=== PATIENT | female | born 1975 | race Caucasian/White ===

== ENCOUNTER 2021-08-02 19:40 | Emergency (ER) | payer SELFPAY ==
[2021-08-02] VITALS (10 sets, daily range): BP systolic 110–148; BP diastolic 63–92; PULSE 73–90; RESP 16–25; TEMP 36.6; O2SAT 92–98
--- NOTE | ~2021-08-02 | XR_ITS ---
EXAMINATION: XR chest 1V portable DATE: 08/02/2021 21:16 INDICATION: Shortness of breath, cough and cold symptoms. TECHNIQUE: frontal view of the chest was obtained. COMPARISON: 01/21/2017 FINDINGS: The lungs remain clear with no focal airspace opacities, pulmonary edema, pleural effusion or pneumot horax. The cardiomediastinal silhouette is normal. Visualized bones and soft tissues are unremarkable . IMPRESSION: 1. No acute cardiopulmonary disease. Reviewed, dictated and finalized at location H. C DEVELOPER
--- NOTE | 2021-08-02 20:57 | ED.URI ---
HPI - URI/Sore Throat General Chief Complaint: Upper Respiratory Infection Stated Complaint: cough congestion Time Seen by Provider: 08/02/21 20:51 Source: patient Mode of arrival: ambulatory Limitations: no limitations History of Present Illness HPI Narrative: Patient is a 46-year-old female complaining of cough, productive, yellowish sputum, nasal congestion, sore throat, headache and fever that started yesterday, I think I have bronchitis which she states presented the same way when she was diagnosed last time. Patient states that she was coughing so hard earlier today she vomited dark stuff , single episode. Patient denies coughing up blood. Patient states that she has had positive sick contact. Patient denies any chest pain, shortness of breath, abdominal pain, nausea, vomiting, diarrhea or rash Related Data Allergies Allergy/AdvReac Type Severity Reaction Status Date / Time erythromycin base Allergy Unknown Unknown Verified 08/02/21 19:57 Review of Systems Review of Systems: All systems reviewed & are unremarkable except as noted in HPI and below Constitutional: Constitutional: Denies body ache(s), Denies excessive sweating, Denies fatigue, Denies headache(s), Denies lethargy, Denies malaise, Denies weakness and Denies weight loss Eyes: Eyes: Denies blurry vision, Denies change in vision and Denies loss of vision ENT: Denies dizziness, Denies ear discharge, Denies headache(s), Denies lip swelling, Denies epistaxis, Denies neck pain, Denies throat swelling and Denies tongue swelling Cardiovascular: Cardiovascular: Denies chest pain, Denies chest pain at rest, Denies chest pain with activity, Denies diaphoresis, Denies rapid heart rate, Denies edema, Denies irregular heart rhythm, Denies lightheadedness, Denies palpitations, Denies dyspnea and Denies dyspnea on exertion Respiratory: Respiratory: Denies hemoptysis, Denies dyspnea and Denies dyspnea on exertion Gastrointestinal: Gastrointestinal: Denies abdominal pain, Denies melena, Denies hematochezia, Denies diarrhea, Denies nausea, Denies vomiting and Denies hematemesis Musculoskeletal: Musculoskeletal: Denies abnormal gait, Denies deformity, Denies joint swelling, Denies limited range of motion, Denies neck pain and Denies numbness Neurologic: Denies Abnormal speech present, Denies abnormal gait, Denies confusion, Denies dizziness, Denies headache(s), Denies focal weakness, Denies loss of vision, Denies numbness, Denies Other visual disturbances, Denies Sensory deficit (Neuro) and Denies weakness Psychiatric: Psychiatric: Denies confusion, Denies depression, Denies auditory hallucinations, Denies homicidal ideation and Denies suicidal ideation Endocrine: Endocrine: Denies cold intolerance, Denies excessive sweating, Denies fatigue, Denies heat intolerance and Denies palpitations Hematologic/Lymphatic: Hematologic/Lymphatic: Denies easy bleeding and Denies easy bruising Allergic/Immunologic: Allergic/Immunologic: Denies lip swelling, Denies throat swelling and Denies tongue swelling PMFSH Social History Social History Smoking end date: 08/09/12 Alcohol intake: current Gender identity (if verbalized by the patient): Female Comments Past medical history: Bronchitis Family history: Hypertension, Social history: Non-smoker, occasional EtOH use, no drug use Exam Const: General: cooperative, healthy appearing, comfortable, no acute distress, well developed, alert and awake; No confusion Orientation/consciousness: oriented to person, oriented to place, oriented to time, patient oriented x3 and No confusion Limitations: no limitations HENMT: Head: normal to inspection, normocephalic and atraumatic Ears: hearing grossly normal bilaterally, TM normal on the right and TM normal on the left General nose exam: Normal external nose present, Normal nares present and No nasal discharge present Face and sinus: normal facial
[2021-08-03 17:04] LABS: SARS-CoV-2 RNA PCR Positive
== END 2021-08-02 23:12 | disposition home or self-care (01) ==
PROVIDERS: Emergency Provider Emergency Medicine; PCP Physician Assistant
DX: U07.1 COVID-19 (principal); J20.9 Acute bronchitis, unspecified; Z87.891 Personal history of nicotine dependence
CPT/HCPCS: 71045; 87804; 99283; C9803; U0003; U0005

== ENCOUNTER 2022-08-20 16:31 | Outpatient (CLI) | payer OTHER, SELFPAY ==
--- NOTE | ~2022-08-20 | XR_ITS ---
XR chest 2V DATE: 08/20/2022 16:55 INDICATION: Acute cough. Covid-positive for 2 to 3 days TECHNIQUE: PA and lateral views COMPARISON: 08/02/2021 portable AP chest FINDINGS: Normal heart size. No hilar or mediastinal enlargement. No pulmonary infiltrate or consolid ation, pleural effusion or pulmonary vascular congestion or pneumothorax. Status post cholecystectomy. IMPRESSION: No active cardiopulmonary disease Reviewed, dictated and finalized at location A. MACY OPERATIONS COORDINATOR
== END 2022-08-20 16:32 | disposition home or self-care (01) ==
PROVIDERS: PCP Physician Assistant; Visit Provider Physician Assistant
DX: U07.1 COVID-19 (principal); R07.89 Other chest pain; R05.1 Acute cough
CPT/HCPCS: 71046

== ENCOUNTER 2022-12-02 19:58 | Emergency (ER) | payer OTHER, SELFPAY ==
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
[2022-12-02 20:05] VITALS: BP 144/84; PULSE 98; RESP 15; TEMP 36.1; O2SAT 99
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
[2022-12-02] MEDS: KETOROLAC (*BKC) 60 MG/2 ML VIAL IM (23:25)
[2022-12-02 23:41] VITALS: BP 162/84; PULSE 72; RESP 15; O2SAT 98
== END 2022-12-02 23:34 | disposition home or self-care (01) ==
PROVIDERS: Emergency Provider Physician Assistant; PCP Physician Assistant
DX: S16.1XXA Strain of muscle, fascia and tendon at neck level, initial encounter (principal); S20.211A Contusion of right front wall of thorax, initial encounter; K21.9 Gastro-esophageal reflux disease without esophagitis; V49.40XA Driver injured in collision with unspecified motor vehicles in traffic accident, initial encounter
CPT/HCPCS: 71046; 71100; 72125; 96372; 99284; J1885

== ENCOUNTER 2023-02-02 09:50 | Outpatient (CLI) | payer OTHER, SELFPAY ==
--- NOTE | ~2023-02-02 | XR_ITS ---
Right Shoulder Technique: AP and scapular Y views were obtained. Clinical History: Pain Findings: No fracture or dislocation is seen. Osseous alignment is anatomic. The glenohumeral and acr omioclavicular joint spaces are preserved. Soft tissues are unremarkable. Impression: Unremarkable right shoulder radiographs. Reviewed, dictated and finalized at [facility]. Impression: Unremarkable right shoulder radiographs.
--- NOTE | ~2023-02-02 | XR_ITS ---
Left Knee Technique: AP and lateral views were obtained. Clinical History: Pain Findings: No fracture or dislocation is seen. Osseous alignment is anatomic. Mild tricompartmental de generative changes present. Soft tissues are unremarkable. No joint effusion is seen. Impression: Mild tricompartmental degenerative change. Reviewed, dictated and finalized at location . Impression: Mild tricompartmental degenerative change.
--- NOTE | ~2023-02-02 | XR_ITS ---
Right Knee Technique: AP and lateral views were obtained. Clinical History: Pain Findings: No fracture or dislocation is seen. Osseous alignment is anatomic. Mild tricompartmental de generative spurring is present. Soft tissues are unremarkable. No joint effusion is seen. Impression: Mild tricompartmental degenerative change. Reviewed, dictated and finalized at [facility]. Impression: Mild tricompartmental degenerative change.
== END 2023-02-02 09:51 | disposition home or self-care (01) ==
LOC: ANHIMG 09:59
PROVIDERS: PCP Physician Assistant; Visit Provider Physician Assistant
DX: M17.0 Bilateral primary osteoarthritis of knee (principal)
CPT/HCPCS: 73030; 73562

== ENCOUNTER 2023-04-20 01:18 | Emergency (ER) | payer OTHER, SELFPAY ==
[2023-04-20 01:20] VITALS: BP 144/92; PULSE 86; RESP 15; TEMP 36.6; O2SAT 100
[2023-04-20 02:16] LABS: Influenza A QL RT-PCR Negative (Negative); Influenza B QL RT-PCR Negative (Negative); RSV RNA, RT-PCR Negative (Negative); SARS-CoV-2 RNA PCR Negative (Negative)
[2023-04-20 03:02] LABS: Strep Group A RT-PCR NOT DETECTED (Negative)
[2023-04-20 04:33] VITALS: BP 145/82; PULSE 74; RESP 18; O2SAT 99
[2023-04-20 06:09] VITALS: BP 133/80; PULSE 78; RESP 16; O2SAT 99
--- NOTE | 2023-04-20 08:19 | ED.GENADULT ---
HPI - General Adult General Chief complaint: Upper Respiratory Infection Stated complaint: sore throat Time Seen by Provider: 04/20/23 06:55 History of Present Illness HPI narrative: 47-year-old female presenting to the emergency department for evaluation of sore throat. Patient states that she had recent travel to [place] when she came back she started having sore throat. Patient does have prior history of vocal cord surgery. Patient denies any recent change in her voice but does report pain with swallowing today. Related Data Home Medications Medication Instructions Recorded Confirmed Nexium 12/02/22 Allergies Allergy/AdvReac Type Severity Reaction Status Date / Time erythromycin base Allergy Unknown Unknown Verified 04/20/23 01:22 iohexol Allergy Itching Verified 04/20/23 01:22 [From contrast - CT, X-RAY] Review of Systems Review of Systems: All systems reviewed & are unremarkable except as noted in HPI and below PMFSH Past Medical History Medical History GERD (gastroesophageal reflux disease) Surgical History Surgical History No pertinent past surgical history Social History Social History Smoking end date: 08/09/12 Alcohol intake: current Gender identity (if verbalized by the patient): Female Exam Narrative: APPEARANCE: Well appearing, no pain, no distress, well-nourished. HEAD: normocephalic, atraumatic. EYES: PERRLA/EOMI, conjunctivae clear. NOSE: Normal no drainage EARS:TMS clear with good light reflex. THROAT: Pharynx clear, no exudate. NECK: Supple. No adenopathy, no masses. RESPIRATORY: Airway patent, respirations nonlabored. Clear to auscultation bilaterally, no rales, rhonchi, wheezing. CARDIOVASCULAR: Regular rate and rhythm without murmurs rubs or gallops. ABDOMINAL: Soft, nontender, nondistended, normal bowel sounds MUSCULOSKELETAL: Moves all extremities. Strength/ROM intact, No edema, No calf tenderness. NEURO: Alert. Cranial nerves II through XII intact. SKIN: Warm, dry. Normal Color Course Course Emergency Course: 47-year-old female presented ED for evaluation of sore throat. Patient was strep negative but patient was treated with antibiotics for pharyngitis. Patient was updated on the results of her work-up. All question concerns were addressed and patient was comfortable with plan for discharge and close follow-up. Vital Signs Vital signs: Vital Signs Temperature 97.8 F 04/20/23 01:20 Pulse Rate 86 04/20/23 01:20 Respiratory Rate 15 04/20/23 01:20 Blood Pressure 144/92 H 04/20/23 01:20 Pulse Oximetry 100 04/20/23 01:20 Oxygen Delivery Room Air 04/20/23 01:20 Temperature 97.8 F 04/20/23 01:20 Pulse Rate 78 04/20/23 06:09 Respiratory Rate 16 04/20/23 06:09 Blood Pressure 133/80 04/20/23 06:09 Pulse Oximetry 99 04/20/23 06:09 Oxygen Delivery Room Air 04/20/23 01:20 Medical Decision Making Differential Diagnosis Differential Diagnosis: Tonsillitis, pharyngitis Vital Signs Vital Signs: Vital Signs Temperature 97.8 F 04/20/23 01:20 Pulse Rate 86 04/20/23 01:20 Respiratory Rate 15 04/20/23 01:20 Blood Pressure 144/92 H 04/20/23 01:20 Pulse Oximetry 100 04/20/23 01:20 Oxygen Delivery Room Air 04/20/23 01:20 Temperature 97.8 F 04/20/23 01:20 Pulse Rate 78 04/20/23 06:09 Respiratory Rate 16 04/20/23 06:09 Blood Pressure 133/80 04/20/23 06:09 Pulse Oximetry 99 04/20/23 06:09 Oxygen Delivery Room Air 04/20/23 01:20 Lab Data Lab results reviewed: Yes I reviewed the patient's lab results. Labs: Lab Results 04/20/23 Range/Units 01:26 Influenza A (RT-PCR) Negative (Negative) Influenza B (RT-PCR) Negative (Negative) RSV (RT-PCR) Negative (Negative) SARS-CoV-
[2023-04-20] MEDS: AMOXICILLIN/CLAVULANATE K SUSP 400-57 MG/5 ML 5 ML UD 875 MG PO (08:50)
== END 2023-04-20 09:00 | disposition home or self-care (01) ==
PROVIDERS: Emergency Medicine; Emergency Provider Emergency Medicine; PCP Physician Assistant
DX: J02.9 Acute pharyngitis, unspecified (principal); K21.9 Gastro-esophageal reflux disease without esophagitis; Z87.891 Personal history of nicotine dependence; Z20.822 Contact with and (suspected) exposure to COVID-19
CPT/HCPCS: 87637; 87651; 96372; 99283; A9270; J1100

== ENCOUNTER 2023-07-25 10:05 | Emergency (ER) | payer OTHER, SELFPAY ==
[2023-07-25 10:15] VITALS: BP 122/77; PULSE 68; RESP 16; TEMP 36.8; O2SAT 99
--- NOTE | 2023-07-25 10:58 | ED.URI ---
HPI - URI/Sore Throat General Chief Complaint: Upper Respiratory Infection Stated Complaint: sore throat,vaginal bleeding Time Seen by Provider: 07/25/23 10:58 Source: patient and RN notes reviewed Mode of arrival: ambulatory Limitations: no limitations History of Present Illness HPI Narrative: 48-year-old female presents concern for sore throat. Reports her grandson had strep throat last week. Reports she has been having sore throat, painful swallowing, some might nasal drainage, headache that started last night. She also reports she started having some vaginal bleeding consistent with a heavy period, she is concerned because she has not had a period in 12 months and thought she was possibly menopausal. She reports her doctor recently essence some blood work for her hormones which she does not know the results. She denies nausea, vomiting, diarrhea, abdominal pain. Reports abdominal cramping. MD elicited complaint: sore throat Related Data Allergies Allergy/AdvReac Type Severity Reaction Status Date / Time erythromycin base Allergy Unknown Unknown Verified 07/25/23 10:29 iohexol Allergy Itching Verified 07/25/23 10:29 [From contrast - CT, X-RAY] Review of Systems Review of Systems: CONSTITUTIONAL: Reports malaise. Denies chills, sweats, or fever. EYES: Denies visual changes, redness, or discharge. ENT: Reports rhinorrhea, sore throat. Denies congestion, sinus pain, otalgia CARDIOVASCULAR: Denies chest pain, palpitations, or edema. RESPIRATORY: Denies cough. Denies dyspnea. GASTROINTESTINAL: Denies abdominal pain, nausea, vomiting, diarrhea. Reports abdominal cramping : Reports vaginal bleeding SKIN: Denies rash or itching. MUSCULOSKELETAL: Denies myalgia. NEUROLOGIC: Reports headache. All systems reviewed & are unremarkable except as noted in HPI and below PMFSH Past Medical History Medical History GERD (gastroesophageal reflux disease) Surgical History Surgical History No pertinent past surgical history Social History Social History Smoking end date: 08/09/12 Alcohol intake: current Gender identity (if verbalized by the patient): Female Comments At time of signature, agree with nursing past medical, surgical, social and family history. There is no relevant family history pertinent to the presenting complaint Exam Narrative: GENERAL: Well-appearing, well-nourished, and in no acute distress. HEAD: Normocephalic EYES: PERRLA, conjunctivae clear ENT: Nares clear. Mucous membranes moist. TM pearly noguera with sharp light reflex bilaterally; no tragal tenderness. Oropharynx erythematous without lesions. Tonsils not enlarged and without exudate, no drooling, no hoarseness, no trismus, uvula midline. NECK: Supple. No lymphadenopathy CHEST: Clear to auscultation, breath sounds equal. No wheezing, rhonchi, rales, or stridor. No respiratory distress, speaks in full sentences. HEART: Regular rate and rhythm. No murmur heard. SKIN: Warm, dry, no rash. NEURO: Alert and oriented x3. PSYCH: Normal mood and affect Course Course Emergency Course: Patient was advised to follow-up with her doctor regarding her lab results vaginal bleeding. Patient is aware of diagnosis, understands and agrees to treatment plan. Anticipatory guidance given. Patient agrees to follow-up as directed and is aware of reasons to seek care at the emergency department. Portions of this record may have been created with voice recognition software Level of Care: Express Care Visit Vital Signs Vital signs: Vital Signs Temperature 98.3 F 07/25/23 10:15 Pulse Rate 68 07/25/23 10:15 Respiratory Rate 16 07/25/23 10:15 Blood Pressure 122/77 07/25/23 10:15 Pulse Oximetry 99 07/25/23 10:15 Oxygen Delivery Room Air 07/25/23 10:15
== END 2023-07-25 11:10 | disposition home or self-care (01) ==
PROVIDERS: Emergency Provider Nurse Practitioner; PCP Physician Assistant
DX: J02.9 Acute pharyngitis, unspecified (principal); Z20.818 Contact with and (suspected) exposure to other bacterial communicable diseases; Z87.891 Personal history of nicotine dependence; K21.9 Gastro-esophageal reflux disease without esophagitis
CPT/HCPCS: 87081; 87880; 99213; G0463

== ENCOUNTER 2024-09-07 09:54 | Outpatient (CLI) | payer OTHER, SELFPAY ==
--- NOTE | ~2024-09-07 | US_ITS ---
EXAMINATION: US venous doppler [facility] DATE: 09/07/2024 10:27 INDICATION: Left calf pain. TECHNIQUE: Grayscale ultrasound images without and with compression and Doppler ultrasound images of the left lower extremity veins were obtained. COMPARISON: None. FINDINGS: The visualized portions of left common femoral vein, profunda (deep) femoral vein, femoral vein, popl iteal vein, peroneal veins, posterior tibial veins, and greater saphenous vein outflow are patent. IMPRESSION: 1. No deep venous thrombosis. Reviewed, dictated and finalized at location A. EL LATHE OPERATOR OUTSIDE
--- OUTSIDE RECORDS SUMMARY | 2024-09-07 10:29 | XMS_ITS | Clinical Summary ---
Author Organization [facility] [place] Address [address] [place] [address] Care Team Providers Care Concrete Pointer Name Role Phone Unavailable Primary Care Provider Unavailabl e Source Comments [facility],non-owned Affiliates and Associated Physician Practices is amultiple site organization consisting of ambulatory clinics and hospital sitesin [place], [place], [place] and [place]. This disclosure is being madepursuant to the Care Everywhere program and may not contain all information available regarding this patient. Last updated 18.[facility] [place] Allergies Active Allergy Reactions Criticality Noted Date Comments Contrast-Iodinated Agents Fo r Ct/Other Swelling 11/20/2017 Facial swelling Erythromycin Swelling 06/12/2017 Medications * Be aware that medications may not be up to date on this document. Alwaysverify current medications with the patient. Medication Sig Dispensed Refills Start Date End Date Status methylPREDNISolone (MEDROL DOSEPAK) 4 MG tabletIndications:Ac [place] pharyngitis, unspecified etiology,Cough Take by mouth as directed 1 Each 06/12/2017 Active fluticasone propionate (FLONASE) 50 MCG/ACT nasal sprayIndications:Acu te pharyngitis, unspecified etiology,Cough [place] 2 sprays into each nostril once daily 1 bottles 06/12/2017 Active ALBUTEROL IN Active benzonatate (TESSALON) 200 MG capsule Take 1 capsule by mouth 3 times daily as needed for Cough 30 capsule 11/20/2017 Active Family History Medical History Relation Name Comments COPD - Chronic Obstructive Pulmonary Disease Father Cancer - Colon Father Diabetes - Type 2 Mother Cancer - Skin, Non Melanoma Paternal Grandfather Relation Name Status Comments Father Mother Alive Paternal Grandfather Social History Tobacco Use Types Packs/Day Years Used Date Smoking Tobacco: Every Day Cigarettes 1.5 30 Smokeless Tobacco: Never Sex and Gender Information Value Date Recorded Sex Assigned at Not on file Gender Identity Not on file Sexual Orientation Not on file Last Filed Vital Signs Vital Sign Reading Time Taken Comments Blood Pressure 118/74 11/20/2017 2:13 PM CDT Pulse 96 11/20/2017 2:13 PM CDT Temperature 36.9 ??C (98.4 ??F) 11/20/2017 2:13 PM CD T Respiratory Rate 16 11/20/2017 2:13 PM CDT Oxygen Saturation 98% 11/20/2017 2:13 PM CDT Inhaled Oxygen Concentration - - Weight 106.6 kg (235 lb) 11/20/2017 2:13 PM CDT Height 167.6 cm (5' 6 ) 11/20/2017 2:13 PM CDT Body Mass Index 37.93 11/20/2017 2:13 PM CDT Plan of Treatment Health Maintenance Due Date Last Done Comments COLOGUARD (AGES 45-75) - COL ON CA SCREENING 1977 COLON MONITORING 1977 COLONOSCOPY - COLON CA SCREENING 1977 CT COLONOGRAPHY - COLON CA SCREENING 1977 Colorectal Cancer Screening 1977 FIT - COLON CA SCREENING 1977 FLEX SIG - COLON CA SCREENING 1977 LIPID TESTING 1977 MAMMOGRAM 1977 PAP SMEAR 1977 HIV SCREENING 1992 HEPATITIS C SCREENING 04/27/1995 DTAP/TDAP/TD VACCINES (1 - Tdap) 1996 HEPATITIS B VACCINE (1 of 3 - 19+ 3-dose series) 1996 PNEUMOCOCCAL VACCINE (1 of 2 - PCV) 1996 SCREENING FOR DIABETES 06/12/2017 COVID-19 VACCINE (1 - 2023-2 5 season) 2024 INFLUENZA VACCINE (#1) 2024 DEPRESSION SCREENING 08/09/2024 ZOSTER VACCINE (1 of 2) 2027 HIB VACCINE Aged Out No longer eligi ble based on patient's age to complete this topic HPV VACCINE Aged Out No longer eligi ble based on patient's age to complete this topic MENINGOCOCCAL (Group B) VACCINE Aged Out No longer eligible based on patient's age to complete this topic MENINGOCOCCAL VACCINE Aged Out No ryan stevenson eligible based on patient's age to complete this topic
--- OUTSIDE RECORDS SUMMARY | 2024-09-07 10:29 | XMS_ITS | Referral Summary ---
Author Organization [email or web address] Address [address] [place] [address] Care Team Providers Care Air And Water Filler Name Role Phone Unavailable Primary Care Provider Unavailabl e Source Comments [facility],non-owned Affiliates and Associated Physician Practices is amultiple site organization consisting of ambulatory clinics and hospital sitesin [place], [place], [place] and [place]. This disclosure is being madepursuant to the Care Everywhere program and may not contain all information available regarding this patient. Last updated 18.[email or web address] Allergies Active Allergy Reactions Criticality Noted Date Comments Contrast-Iodinated Agents Fo r Ct/Other Swelling 11/20/2017 Facial swelling Erythromycin Swelling 06/12/2017 Medications * Be aware that medications may not be up to date on this document. Alwaysverify current medications with the patient. Medication Sig Dispensed Refills Start Date End Date Status methylPREDNISolone (MEDROL DOSEPAK) 4 MG tabletIndications:Ac resighini pharyngitis, unspecified etiology,Cough Take by mouth as directed 1 Each 06/12/2017 Active fluticasone propionate (FLONASE) 50 MCG/ACT nasal sprayIndications:Acu te pharyngitis, unspecified etiology,Cough [place] 2 sprays into each nostril once daily 1 bottles 06/12/2017 Active ALBUTEROL IN Active benzonatate (TESSALON) 200 MG capsule Take 1 capsule by mouth 3 times daily as needed for Cough 30 capsule 11/20/2017 Active Social History Tobacco Use Types Packs/Day Years [...] 11/20/2017 2:13 PM CDT Plan of Treatment Not on file
--- OUTSIDE RECORDS SUMMARY | 2024-09-07 10:29 | XMS_ITS | Patient Health Summary ---
Author Organization [facility] Address [address] [place] [address] Care Team Providers Care Supervisor [employer]ifiers Name Role Phone Unavailable Primary Care Provider Unavailabl e Note from [facility],non-owned Affiliates and Associated Physician Practices is amultiple site organization consisting of ambulatory clinics and hospital sitesin [place], [place], [place] and [place]. This disclosure is being madepursuant to the Care Everywhere program and may not contain all information available regarding this patient. Last updated 18.[facility] Allergies * Contrast-Iodinated Agents For Ct/Other(Swelling) * Erythromycin(Swelling) * Azithromycin,Inactive Medications * Be aware that medications may not be up to date on this document. Alwaysverify current medications with the patient. * methylPREDNISolone (MEDROL DOSEPAK) 4 MG tablet(Started 06/12/2017) Take by mouth as directed * fluticasone propionate (FLONASE) 50 MCG/ACT nasal spray(Started 06/12/2017) [place] 2 sprays into each nostril once daily * ALBUTEROL IN * benzonatate (TESSALON) 200 MG capsule(Started 11/20/2017) Take 1 capsule by mouth 3 times daily as needed for Cough Social History Tobacco Use Types Packs/Day Years [...] Mass Index 37.93 11/20/2017 2:13 PM CDT Procedures * STREP A SCREEN - POINT OF CARE (AMB) STL(Performed 11/20/2017) Performed for Nasopharyngitis * STREP A SCREEN - POINT OF CARE (AMB) STL(Performed 06/12/2017) Performed for Acute pharyngitis, unspecified etiology Results * STREP A SCREEN (11/20/2017) Only the most recent of2 resultswithin the time period is included. 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
--- OUTSIDE RECORDS SUMMARY | 2024-09-07 10:29 | XMS_ITS | Referral Summary ---
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 CDT): Discussed GERD at length including anatomy, behavioral changes (raise HOB, meal timings), dietary changes and medication options. Reviewed risks, benefits alternatives, side effects and proper use. Followup if sxs worsen or has hematochezia or hematemeis. Start PPI. Monitor closely. Abdominal pain is almost all at the mid-epigastric area. Thrombocytosis 02/04/2017 Resolved Problems Problem Noted Date Diagnosed Date Resolved Date BMI 29.0-29.9,adult 06/12/2024 09/07/19 25 Assessment & Plan (06/12/2024 10:58 AM PAPER MACHINE TENDER): BMI Follow-up includes: Discussed diet and exercising counseling. BMI 40.0-44.9, adult 09/10/2023 024 Assessment & Plan (10/03/2023 5:15 PM PAPER MACHINE TENDER): Discussed the patient's BMI. The BMI is above average. BMI management plan is completed. BMI Follow-up includes: nutrition counseling, exercise counseling and education provided. Morbid obesity 03/16/2023 06/12/2024 Assessment & Plan (10/03/2023 5:13 PM PAPER MACHINE TENDER): Discussed the patient's BMI. The BMI is above average. BMI management plan is completed. BMI Follow-up includes: nutrition counseling, exercise counseling and education provided. Assessment & Plan (07/05/2023 3:22 PM PAPER MACHINE TENDER): Discussed the patient's BMI. The BMI is above average. BMI management plan is completed. BMI Follow-up includes: nutrition counseling, exercise counseling and education provided. Patient has an obesity-related condition (not limited to: hypertension, obstructive sleep apnea, osteoarthritis, hyperlipidemia, diabetes, etc.). Therefore, morbid obesity may be documented for patients with a BMI between 35.00-39.99. Assessment & Plan (03/28/2023 9:50 PM CDT): Discussed the patient's BMI. The BMI is above average. BMI management plan is completed. BMI Follow-up includes: nutrition counseling, exercise counseling and education provided. Patient has an obesity-related condition (not limited to: hypertension, obstructive sleep apnea, osteoarthritis, hyperlipidemia, diabetes, etc.). Therefore, morbid obesity may be documented for patients with a BMI between 35.00-39.99. BMI 36.0-36.9,adult 03/16/2023 07/05/20 23 Assessment & Plan (03/16/2023 9:06 AM CDT): Discussed the patient's BMI. The BMI is above average. BMI management plan is completed. BMI Follow-up includes: nutrition counseling, exercise counseling and education provided. Morbid obesity 02/02/2023 03/16/2023 Assessment & Plan (02/02/2023 10:25 PM CDT): Discussed the patient's BMI. The BMI is above average. BMI management plan is completed. BMI Follow-up includes: nutrition counseling, exercise counseling and education provided. Patient has an obesity-related condition (not limited to: hypertension, obstructive sleep apnea, osteoarthritis, hyperlipidemia, diabetes, etc.). Therefore, morbid obesity may be documented for patients with a BMI between 35.00-39.99. BMI 37.0-37.9, adult 02/02/2023 023 Assessment & Plan (02/02/2023 7:41 AM CDT): Discussed the patient's BMI. The BMI is above average. BMI management plan is completed. BMI Follow-up includes: nutrition counseling, exercise counseling and education provided. BMI 36.0-36.9,adult 11/12/2022 02/03/20 Assessment & Plan (11/12/2022 8:48 AM CDT): BMI Follow-up includes: Discussed diet and exercising counseling. Morbid obesity 11/12/2022 02/02/2023 Assessment & Plan (11/12/2022 8:49 AM CDT): Discussed the patient's BMI. The BMI is above average. BMI management plan is completed. BMI Follow-up includes: nutrition counseling, exercise counseling and education provided. Patient has an obesity-related condition (not limited to: hypertension, obstructive sleep apnea, osteoarthritis, hyperlipidemia, diabetes, etc.). Therefore, morbid obesity may be documented for patients with a BMI between 35.00-39.99. Morbid obesity 11/11/2021 11/12/2022 Assessment & Plan (08/25/2022 10:20 PM PAPER MACHINE TENDER): Discussed the patient's BMI. The BMI is above average. BMI management plan is completed. BMI Follow-up includes: nutrition counseling, exercise counseling and education provided. Patient has an obesity-related condition (not limited to: hypertension, obstructive sleep apnea, osteoarthritis, hyperlipidemia, diabetes, etc.). Therefore, morbid obesity may be documented for patients with a BMI between 35.00-39.99. Assessment & Plan (11/11/2021 7:41 AM CDT): Weight/BMI is in healthy range. Continue healthy lifestyle to maintain. BMI 35.0-35.9,adult 11/11/2021 11/13/19 Assessment & Plan (08/25/2022 10:20 PM PAPER MACHINE TENDER): Discussed the patient's BMI. The BMI is above average. BMI management plan is completed. BMI Follow-up includes: nutrition counseling, exercise counseling and education provided. Assessment & Plan (11/11/2021 7:41 AM CDT): Obesity is unchanged. Discussed the patient's BMI. The BMI is above average. BMI management plan is completed. BMI Follow-up includes: nutrition counseling, exercise counseling and education provided. Annual physical exam 11/11/2021 022 Assessment & Plan (11/11/2021 9:20 PM CDT): Encouraged healthy lifestyle, good nutrition and exercise. Encouraged Calcium and Vitamin D and weight bearing exercise for bone health. Reviewed immunizations Reviewed age appropirate screenings. Patient is past due for Pap smear. Will get her scheduled in the next few months. Obesity (BMI 30-39.9) 10/10/20212021 Assessment & Plan (10/10/2021 10:05 AM PAPER MACHINE TENDER): Obesity is unchanged. Discussed the patient's BMI. The BMI is above average. BMI management plan is completed. BMI Follow-up includes: nutrition counseling, exercise counseling and education provided. BMI 35.0-35.9,adult 10/10/2021 11/12/19 Assessment & Plan (10/10/2021 10:05 AM PAPER MACHINE TENDER): Obesity is unchanged. Discussed the patient's BMI. The BMI is above average. BMI management plan is completed. BMI Follow-up includes: nutrition counseling, exercise counseling and education provided. Lipid screening 03/09/2021 03/28/2023 Assessment & Plan (11/11/2021 9:19 PM CDT): Check lipids Assessment & Plan (03/09/2021 9:42 AM CDT): Check labs Diabetes mellitus screening 03/09/2021 03/28/2023 Assessment & Plan (11/11/2021 9:19 PM CDT): Check labs Assessment & Plan (03/09/2021 9:42 AM CDT): Check labs Obesity (BMI 30-39.9) 02/27/20212021 Assessment & Plan (02/27/2021 2:47 PM CDT): Obesity is unchanged. Discussed the patient's BMI. The BMI is above average. BMI management plan is completed. BMI Follow-up includes: nutrition counseling, exercise counseling and education provided. BMI 34.0-34.9,adult 02/27/2021 10/11/19 Assessment & Plan (02/27/2021 2:47 PM CDT): Obesity is unchanged. Discussed the patient's BMI. The BMI is above average. BMI management plan is completed. BMI Follow-up includes: nutrition counseling, exercise counseling and education provided. Obesity (BMI 30-39.9) 12/05/20202020 Assessment & Plan (12/05/2020 2:34 PM CDT): Obesity is unchanged. Discussed the patient's BMI. The BMI is above average. BMI management plan is completed. BMI Follow-up includes: nutrition counseling, exercise counseling and education provided. BMI 35.0-35.9,adult 12/05/2020 02/28/20 Assessment & Plan (12/05/2020 2:34 PM CDT): Obesity is unchanged. Discussed the patient's BMI. The BMI is above average. BMI management plan is completed. BMI Follow-up includes: nutrition counseling, exercise counseling and education provided. Obesity (BMI 30-39.9) 11/18/20202020 Assessment & Plan (11/18/2020 11:11 AM CDT): Obesity is unchanged. Discussed the patient's BMI. The BMI is above average. BMI management plan is completed. BMI Follow-up includes: nutrition counseling, exercise counseling and education provided. BMI 36.0-36.9,adult 11/18/2020 12/06/19 Assessment & Plan (11/18/2020 11:11 AM CDT): Obesity is unchanged. Discussed the patient's BMI. The BMI is above average. BMI management plan is completed. BMI Follow-up includes: nutrition counseling, exercise counseling and education provided. Tobacco use disorder 11/18/2020 022 Assessment & Plan (11/18/2020 12:01 PM CDT): She was advised smoking cessation and declines aid at this time. Pain of right heel 09/29/2020 Assessment & Plan (09/29/2020 5:24 PM PAPER MACHINE TENDER): Refer to Podiatry for further evaluation/treatment BMI 37.0-37.9, adult 09/27/2020 021 Assessment & Plan (09/29/2020 5:25 PM PAPER MACHINE TENDER): Obesity is unchanged. Discussed the patient's BMI. The BMI is above average. BMI management plan is completed. BMI Follow-up includes: nutrition counseling, exercise counseling and education provided. Acute pain of left knee 09/16/201909/10 Assessment & Plan (09/16/2019 8:26 PM PAPER MACHINE TENDER): Check xrays. Elevate, ice and rest. Pending xrays may consider PT or Ortho. Suspect MCL strain vs meniscus involvement. May need MRI BMI 40.0-44.9, adult 05/11/2019 021 Assessment & Plan (11/13/2019 11:22 AM CDT): Obesity is unchanged. Discussed the patient's BMI. The BMI is above average. BMI management plan is completed. BMI Follow-up includes: nutrition counseling, exercise counseling and education provided. Assessment & Plan (05/11/2019 7:15 AM CDT): Obesity is unchanged. Discussed the patient's BMI. The BMI is above average. BMI management plan is completed. BMI Follow-up includes: nutrition counseling, exercise counseling and education provided. Obesity (BMI 30-39.9) 05/11/20192020 Assessment & Plan (09/29/2020 5:25 PM PAPER MACHINE TENDER): Obesity is unchanged. Discussed the patient's BMI. The BMI is above average. BMI management plan is completed. BMI Follow-up includes: nutrition counseling, exercise counseling and education provided. Assessment & Plan (11/13/2019 11:22 AM CDT): Obesity is unchanged. Discussed the patient's BMI. The BMI is above average. BMI management plan is completed. BMI Follow-up includes: nutrition counseling, exercise counseling and education provided. Assessment & Plan (05/11/2019 7:15 AM CDT): Obesity is unchanged. Discussed the patient's BMI. The BMI is above average. BMI management plan is completed. BMI Follow-up includes: nutrition counseling, exercise counseling and education provided. Need for immunization against influenza 05/11/2019 11/13/2019 Assessment & Plan (05/13/2019 7:01 PM CDT): Flu vaccine updated in the office today Obesity (BMI 30-39.9) 03/29/20192018 Assessment & Plan (04/24/2019 2:58 PM CDT): Obesity is unchanged. Discussed the patient's BMI. The BMI is above average. BMI management plan is completed. BMI Follow-up includes: nutrition counseling, exercise counseling and education provided. Assessment & Plan (03/29/2019 7:36 AM CDT): BMI Follow-up includes: Discussed diet and exercising counseling. Immunizations Name Administration Dates Next Due Influenza, Quadrivalent, Spl it, Preservative Free, Intramuscular 05/11/2019 Influenza, Trivalent, Preser vative Free, Intramuscular 08/22/2012 Influenza, Unspecified 08/09/2024(Deferr ed: Patient Refused),08/09/2024(Deferred: Patient Refused),07/05/2023(Deferred: Patient Refused),09/09/2022(Deferred: Patient Refused),10/10/2021(Deferred: Patient Refused),09/09/2021(Deferred: Patient Refused),09/09/2021(Deferred: Patient Refused),05/09/2020(Deferred: Patient Refused) Tdap 06/12/2024,11/21/2015 Social History Tobacco Use Types Packs/Day Years Used Date Smoking Tobacco: Every Day Cigarettes 0.5 30 Started: 08/10/1994; Last attempted to quit: 10/23/2022 Smokeless Tobacco: Never Tobacco Cessation:Ready to Q uit: Not Asked; Counseling Given: Not Answered Alcohol Use Standard Drinks/Week Comments Yes 0 (1 standard drink = 0.6 oz pur e alcohol) AUDIT-C Answer Date Recorded Q1: How often do you have a drink containing alcohol? Never 09/07/2024 Q2: How many drinks containi ng alcohol do you have on a typical day when you are drinking? Patient does not drink Q3: How often do you have si x or more drinks on one occasion? Never 09/07/2024 PHQ-2 Answer Date Recorded PHQ-2 Total Score (If total score is 3 or more points, staff should administer the PHQ-9) 0 09/07/2024 Personal Safety Answer Date Recorded Have you ever been in or are you currently in a harmful physical or emotional relationship or is someone making you feel afraid or unsafe? 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 on file Not on file Not on file Last Filed Vital Signs Vital Sign Reading Time Taken Comments Blood Pressure 122/70 09/07/2024 8:33 AM PAPER MACHINE TENDER Pulse 96 09/07/2024 8:33 AM PAPER MACHINE TENDER Temperature 36.6 ??C (97.9 ??F) 09/07/2024 8:33 AM CS T Respiratory Rate 16 05/12/2024 6:49 PM CDT Oxygen Saturation 97% 09/07/2024 8:33 AM PAPER MACHINE TENDER Inhaled Oxygen Concentration - - Weight 88.6 kg (195 lb 4.8 oz) 09/07/2024 8:33 A M PAPER MACHINE TENDER Height 167.6 cm (5' 6 ) 09/07/2024 8:33 AM PAPER MACHINE TENDER Body Mass Index 31.52 09/07/2024 8:33 AM PAPER MACHINE TENDER Plan of Treatment Not on file Procedures Procedure Name Priority Date/Time Associated Diagnosis Comments PAP AND HIGH RISK HPV, REFLEX TO GENOTYPING Routine 11/12/2022 8:38 AM CDT Cervical cancer screening SCREENING MAMMOGRAM BILATERAL W ISAIAS Schedule Routine, Read Routine (OP Routine) 07/16/2022 Breast cancer screening by mammogram HM COLONOSCOPY Routine 06/25/2022 from Last 3 Months or Most Recently Relevant to Health Maintenance Results * Pap and High Risk HPV, reflex to Genotyping (11/12/2022 8:38 AM CDT) CLINICAL INFORMATION: [facility] Comment:FERMIN KERRY LMP [employer] [facility] Comment:3 MONTHS AGO Previous Pap [employer] [facility] Comment:None given Prev. Bx [employer] Comment:None given SOURCE: [facility] Comment:Cervix, Endocervix Pap, specimen adequacy [facility] Comment: Satisfactory for evaluation. Endocervical/transformation zone component present. HPV interp [facility] Comment:Negative for intraep ithelial lesion or malignancy. Supervisor [employer] [facility] Comment: DDS, CT(ASCP) CT screening location: [place] [address] [place] [address] Comment [employer] [facility] Comment: EXPLANATORY NOTE: The Pap is a screening test for cervical cancer. It is not a diagnostic test and is subject to false negative and false positive results. It is most reliable when a satisfactory sample, regularly obtained, is submitted with relevant clinical findings and history, and when the Pap result is evaluated along with historic and current clinical information. Human papillomavirus DNA, High Risk E6/E7 Not Detected NOT DETECTED [employer] /Mandy Andersen [facility] Comment: Not Detected High Risk HPV types (16,18,31,33,35,39,45,51,52, 56,58,59,66,68) were not detected. Other HPV types which cause anogenital lesions may be present. The significance of the other types of HPV in malignant processes has not been established. Methodology: Real Time PCR ? Thin prep 11/12/2022 8:38 AM CDT 11/13/2022 4:15 AM CDT us Maryellen [facility] CYTOLOGY ORDERABLES Fi nal Result [facility] [address] [place] [address] Kavita Tomas/[place] [address] [address] [place] [address] * Screening Mammogram Bilateral W Isaias (07/16/2022) Anatomical Region Laterality Modality Breast Bilateral Mammography Impressions 07/16/2022 BI-RADS CATEGORY 1- Negative Recommend annual exam. Maryellen [facility] IM[facility] MAMMO PROCEDURES Final Result * (ABNORMAL) HM COLONOSCOPY (06/25/2022) Todd Schofield MD HEALTH MAINTENANCE Edited Resul t - Final from Last 3 Months or Most Recently Relevant to Health Maintenance Insurance [facility] [employer] [place] [facility] HMO Care Teams Production Director Relationship Specialty Start Date End Date Maryellen Feng PA [address] [place] [address] PCP - General Internal Medicine 02/27/19 Anil [place] [address] Consulting Physician Otolaryngology 11/06/22
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
--- OUTSIDE RECORDS SUMMARY | 2024-09-07 10:29 | XMS_ITS | Clinical Summary ---
Author Organization [facility] Administrative Offices Address [address] [place] [address] Care Team Providers Care Seo Coordinator Name Role Phone Unavailable Primary Care Provider Unavailabl e Social History Tobacco Use Types Packs/Day Years Used Date Smoking Tobacco: Never Assessed Comments Unknown Sex and Gender Information Value Date Recorded Sex Assigned at Not on file Legal Sex Female 10:15 AM FREELANCE INTERPRETER/TRANSLATOR Gender Identity Not on file Sexual Orientation Not on file Plan of Treatment Health Maintenance Due Date Last Done Comments HEPATITIS B VACCINES (1 of 3 - 19+ 3-dose series) 1996 CERVICAL CANCER SCREENING 2007 COLORECTAL SCREENING 2022 Colorectal Cancer Screening 2022 FIT-DNA Q 3 years 2022 FIT/FOBT Q 1 year 2022 Flex Sig/CT Colonography Q 5 years 2022 BREAST CANCER SCREENING 07/16/2023 07/16/2022, 10/17 INFLUENZA VACCINE (#1) 2024 05/11/2019, 2012 DTAP/TDAP/TD VACCINES (2 - Td or Tdap) 11/20/2025 Procedures Procedure Name Priority Date/Time Associated Diagnosis Comments MAMMO 3D MARGOT SCREEN BILAT W OR WO CAD Routine 07/16/2022 1:55 PM FREELANCE INTERPRETER/TRANSLATOR Breast cancer screening by mammogram from Last 3 Months or Most Recently Relevant to Health Maintenance Results * MAMMO SCRN BILAT 3D MARGOT W OR WO CAD (07/16/2022 1:55 PM FREELANCE INTERPRETER/TRANSLATOR) Anatomical Region Laterality Modality Breast Bilateral Mammography 07/16/2022 1:55 PM FREELANCE INTERPRETER/TRANSLATOR Impressions 07/16/2022 2:57 PM FREELANCE INTERPRETER/TRANSLATOR IMPRESSION: ?? 1. No concerning findings. OVERALL FINAL ASSESSMENT: ??BI-RADS CATEGORY 1 - Negative. RECOMMENDATIONS: ?? 1. Recommend annual mammography. Narrative 07/16/2022 2:57 PM FREELANCE INTERPRETER/TRANSLATOR BILATERAL SCREENING DIGITAL MAMMOGRAM WITH 3D TOMOSYNTHESIS AND CAD DATE: 07/16/2022 1:55 PM DICTATION LOCATION: [facility] HISTORY: Routine yearly screening exam. TECHNIQUE: Low-dose full-field digital breast tomosynthesis examination was performed of both breasts with 2D and 3D acquisitions. CAD was utilized. COMPARISON: 10/18/2019 BREAST COMPOSITION: Scattered fibroglandular densities FINDINGS: No concerning dominant masses, suspicious calcifications, parenchymal asymmetries or areas of architectural distortion are identified in either breast. Procedure Note Connor Branch MD - 07/16/2022 BILATERAL SCREENING DIGITAL MAMMOGRAM WITH 3D TOMOSYNTHESIS AND CAD DATE: 07/16/2022 1:55 PM DICTATION LOCATION: [facility] HISTORY: Routine yearly screening exam. TECHNIQUE: Low-dose full-field digital breast tomosynthesis examination was performed of both breasts with 2D and 3D acquisitions. CAD was utilized. COMPARISON: 10/18/2019 BREAST COMPOSITION: Scattered fibroglandular densities FINDINGS: No concerning dominant masses, suspicious calcifications, parenchymal asymmetries or areas of architectural distortion are identified in either breast. IMPRESSION: 1. No concerning findings. OVERALL FINAL ASSESSMENT: BI-RADS CATEGORY 1 - Negative. RECOMMENDATIONS: 1. Recommend annual mammography. Maryellen Feng PA-C MAMMO ORDERABLES Final Re sult from Last 3 Months or Most Recently Relevant to Health Maintenance Insurance [employer] PPO
--- OUTSIDE RECORDS SUMMARY | 2024-09-07 10:29 | XMS_ITS | Clinical Summary ---
Author Organization [facility] Address [address], [facility] [address] [place] [address] Phone Care Team Providers Care Automatic Winder Operator Name Role Phone Ousmane Bee MD Primary Care Provider [phone] Anil Maxwell MD Unavailable [phone] Allergies Active Allergy Reactions Criticality Noted Date Comments Erythromycin Anaphylaxis High 06/26/2015 Medications PROAIR HFA 108 (90 Base) MCG/ACT Aerosol Solution as needed. 0 01/13/2017 Active ALBUTEROL IN take by inhalation. Active Benzonatate 200 MG Capsule Take by mouth as needed. 06/12/2017 Active fluticasone (FLONASE) 50 MCG/ACT Suspension by Nasal route daily. 06/12/2017 Active methylPREDNISolo ne (MEDROL DOSPACK) 4 MG Tablet Therapy Pack Take by mouth. 06/12/2017 Active Active Problems Problem Noted Date Diagnosed Date Thrombocytosis (<HCC>) 02/04/2017 Family History Medical History Relation Name Comments Cancer Father colorectal Diabetes Mother Relation Name Status Comments Father Mother Social History Tobacco Use Types Packs/Day Years Used Date Smoking Tobacco: Every Day Cigarettes 1.5 36.6 Started: 02/05/1988 Smokeless Tobacco: Never Alcohol Use Standard Drinks/Week Comments Yes 0 (1 standard drink = 0.6 oz pur e alcohol) occasional Comments Unknown Sex and Gender Information Value Date Recorded Sex Assigned at Not on file Legal Sex Female 1:55 PM CDT Gender Identity Not on file Sexual Orientation Not on file Last Filed Vital Signs Vital Sign Reading Time Taken Comments Blood Pressure 128/86 06/17/2017 10:14 AM RETAIL DEPARTMENT RESET Pulse 89 06/17/2017 10:14 AM RETAIL DEPARTMENT RESET Temperature 36.5 ??C (97.7 ??F) 06/17/2017 1 0:14 AM RETAIL DEPARTMENT RESET Respiratory Rate 18 06/17/2017 10:1 4 AM RETAIL DEPARTMENT RESET Oxygen Saturation 99% 06/17/2017 10: 14 AM RETAIL DEPARTMENT RESET Inhaled Oxygen Concentration - - Weight 103.6 kg (228 lb 6.4 oz) 017 10:14 AM RETAIL DEPARTMENT RESET Height 167.6 cm (5' 6 ) 06/17/2017 10:1 4 AM RETAIL DEPARTMENT RESET Body Mass Index 36.86 06/17/2017 10:14 AM RETAIL DEPARTMENT RESET Plan of Treatment Health Maintenance Due Date Last Done Comments Hepatitis C Virus (HCV) Screening 1977 TdaP Immunization 1977 Hepatitis B Immunization (1 of 3 - 19+ 3-dose series) 1996 Pap Smear 1998 Cervical Cancer Screening (CCS) 2007 HPV/Cotest 2007 Discussion re Starting/Frequ ency of Mammograms 2017 Colonoscopy 2022 Colorectal Cancer Screening 2022 Influenza Immunization (#1) 2024 SARS-COV-2 Immunization ( season) 2024 Respiratory Syncytial Virus (RSV) Immunization (Adult) (1 - 1-dose 75+ series) 2052 Meningococcal Immunization (ACWY) Aged Out No longer eligible based on patient's age to complete this topic Pneumococcal Immunization Combined Aged Out No longer eligible based on patient's age to complete this topic Rotavirus Immunization Aged Out No lo nger eligible based on patient's age to complete this topic Insurance [facility] MEDICAID [place] Care Teams Automatic Winder Operator Relationship Specialty [place] [address] [facility] [address] [place] [address] PCP - General General Surgery 01/25/17 [place] [address] [facility] [address] [place] [id number] Otolaryngology 04/08/17
--- OUTSIDE RECORDS SUMMARY | 2024-09-07 10:29 | XMS_ITS | Encounter Summary ---
Author Organization [facility] Healthcare Address [address] [place] [address] Care Team Providers Care Strapper Name Role Phone Maryellen Feng Primary Care Provider [phone] Anil Maxwell MD Unavailable [phone] Reason for Referral * Diagnostic Imaging (Routine) - Pending Review Specialty Diagnoses / Procedures Referred By Enrique nicholas Referred To Contact Diagnoses Pain of left calf Procedures US VEIN DUPLEX LOWER EXTREMITY LEFT LIMITED, UNILATERAL Maryellen Feng PA [address] [place] [address] Phone: tel: fax: External Order Referral ID Status Reason Start Date Expiration Date V isits Requested Visits Authorized [id number] Pending Review 09/07/2024 10/07/2025 1 1 OR BUSINESS ANALYST Reason for Visit * Reason Comments calf injury Left calf injury abo ut 4 months ago after fall. Inner aspect of calf is tender and cramping. Menopause Hasn't had a period beginning of the year in 2023. Eye Pain Random shooting eye pain that only last moments. Rash On belly button. [place] oing about 3 months. Has tried HCTZ cream and blue star ointment but ineffective. Hives Ongoing periodic hiv es all over body. Encounter Details Date Type Department Care Team (Late Contact Info) Description 09/07/2024 8:30 AM SENIOR BUSINESS ANALYST Office Visit [facility] Family Medicine [address] [place] [address] Maryellen Feng PA [address] [place] [address] BMI 31.0-31.9,adult (Primary Dx); Pain of left calf Social History Tobacco Use Types Packs/Day Years Used Date Smoking Tobacco: Every Day Cigarettes 0.5 30 Started: 08/10/1994; Last attempted to quit: 10/23/2022 Smokeless Tobacco: Never Alcohol Use Standard Drinks/Week [...] on file Legal Sex Female 6:31 AM SENIOR BUSINESS ANALYST Gender Identity Not on file Sexual Orientation Not on file 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 on file Not on file Not on file documented as of this encounter Last Filed Vital Signs Vital Sign Reading Time Taken Comments Blood Pressure 122/70 09/07/2024 8:33 AM SENIOR BUSINESS ANALYST Pulse 96 09/07/2024 8:33 AM SENIOR BUSINESS ANALYST Temperature 36.6 ??C (97.9 ??F) 09/07/2024 8:33 AM CS T Respiratory Rate - - Oxygen Saturation 97% 09/07/2024 8:33 AM SENIOR BUSINESS ANALYST Inhaled Oxygen Concentration - - Weight 88.6 kg (195 lb 4.8 oz) 09/07/2024 8:33 A M SENIOR BUSINESS ANALYST Height 167.6 cm (5' 6 ) 09/07/2024 8:33 AM SENIOR BUSINESS ANALYST Body Mass Index 31.52 09/07/2024 8:33 AM SENIOR BUSINESS ANALYST documented in this encounter Ordered Prescriptions Prescription Sig Dispense Quantity Refills Last Filled Start Date End Date triamcinolone (KENALOG) 0.1 % cream Apply to affected area 1-2 times daily as needed. Avoid face and groin. 30 g 09/07/2024 documented in this encounter Miscellaneous Notes * Assessment & Plan Note - Veronica Reeves LPN - 09/07/2024 8:36 AM SENIOR BUSINESS ANALYST Associated Problem(s): BMI 31.0-31.9,adult Discussed the patient's BMI. The BMI is above average. BMI management plan is completed. BMI Follow-up includes: nutrition counseling, exercise counseling and education provided. OR BUSINESS ANALYST documented in this encounter Plan of Treatment Scheduled Orders Name Type Priority Associated Diagnoses Orde r Schedule US VEIN DUPLEX LOWER EXTREMITY LEFT LIMITED, UNILATERAL Imaging Schedule EDMUND, Read EDMUND (Appt Today, Awaiting Results) Pain of left calf Expected: 09/07/2024, Expires: 09/07/2025 documented as of this encounter Visit Diagnoses Diagnosis BMI 31.0-31.9,adult- Primary Pain of left calf documented in this encounter Discontinued Medications Medication Sig Discontinue Reason Start Date End Da te benzonatate (TESSALON) 200 mg capsuleIndications:Lowe r respiratory infection (e.g., bronchitis, pneumonia, pneumonitis, pulmonitis) Take 1 capsule (200 mg total) by mouth 3 (three) times a day as needed for cough Therapy completed 05/12/2024 09/07/2024 HYDROcodone-acetaminoph en (NORCO) 5-325 mg per tablet Take 1 tablet by mouth Therapy completed 09/09/2023 09/07/2024 ipratropium-albuteroL (DUO-NEB) 0.5-2.5 mg/3 mL nebulizer solutionIndications:Chr onic Obstructive Pulmonary Disease with Bronchospasms Take 3 mL by nebulization 4 (four) times a day as needed for wheezing or shortness of breath Therapy completed 05/12/2024 09/07/2024 venlafaxine XR (EFFEXOR-XR) 75 mg 24 hr capsule Take 1 capsule (75 mg total) by mouth daily Take with food. Therapy completed 10/03/2023 09/07/2024 documented as of this encounter Care Teams Strapper Relationship Specialty Start Date End Date Maryellen Feng PA [address] [place] [address] PCP - General Internal Medicine 02/27/19 Anil Maxwell MD [address] [place] [address] Consulting Physician Otolaryngology 11/06/22 documented as of this encounter
== END 2024-09-07 09:55 | disposition home or self-care (01) ==
PROVIDERS: PCP Physician Assistant; Visit Provider Physician Assistant
DX: M79.662 Pain in left lower leg (principal)
CPT/HCPCS: 93971

== ENCOUNTER 2025-07-09 10:05 | Outpatient (CLI) | payer OTHER, SELFPAY ==
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
--- OUTSIDE RECORDS SUMMARY | 2025-07-09 11:21 | XMS_ITS | Encounter Summary ---
Author Organization [facility] Healthcare Address [address] [place] [address] Care Team Providers Care Aviation Safety Equipment Technician Name Role Phone Maryellen Feng Primary Care Provider [phone] Anil Maxwell MD Unavailable [phone] Reason for Referral * Diagnostic Imaging (Routine) - Authorized Specialty Diagnoses / Procedures Referred By Contcharles t Referred To Contact Diagnoses Acute pain of right knee Procedures XR Knee Right 3 Vw Maryellen Feng PA [address] [place] [address] Phone: tel: fax: External Order Referral ID Status Reason Start Date Expiration Date V isits Requested Visits Authorized [id number] Authorized 07/09/2025 08/08/2026 1 1 EDIENT HANDLER Encounter Details Date Type Department Care Team (Late st Contact Info) Description 07/09/[address] 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 on file Not on file Not on file documented as of this encounter Progress Notes * Veronica Reeves LPN - 07/09/2025 9:31 AM CST Order placed per PCP EDIENT HANDLER documented in this encounter Plan of Treatment Scheduled Orders Name Type Priority Associated Diagnoses Orde r Schedule XR Knee Right 3 Vw Imaging Schedule Routine, Read Routine (OP Routine) Acute pain of right knee Expected: 07/09/2025, Expires: 07/09/2026 documented as of this encounter Visit Diagnoses Diagnosis Acute pain- Primary Acute pain of right knee documented in this encounter Care Teams Aviation Safety Equipment Technician Relationship Specialty Start Date End Date Maryellen Feng PA [address] [address] [address] [place] [address] PCP - General Internal Medicine 02/27/19 Anil Maxwell MD [address] [place] [address] Consulting Physician Otolaryngology 11/06/22 documented as of this encounter
--- OUTSIDE RECORDS SUMMARY | 2025-07-09 11:21 | XMS_ITS | Encounter Summary ---
Author Organization [facility] Healthcare Address [address] [place] [address] Care Team Providers Care Wash Driller Name Role Phone Maryellen eFng Primary Care Provider [phone] Anil Maxwell MD Unavailable [phone] Reason for Visit * Reason Onset Date Comments Knee Pain 07/09/2025 Encounter Details Date Type Department Care Team (Late st Contact Info) Description 07/09/2025 Nurse Triage [facility] Family Medicine [address] [place] [address] Maryellen Feng PA [address] [place] [address] Social History Tobacco Use Types Packs/Day Years [...] on file Legal Sex Female 6:31 AM EDUCATION TECHNICIAN Gender Identity Not on file Sexual Orientation Not on file 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 Called pt and she would like it done at [facility]. Order placed and faxed. Pt made aware and will go today. ATION TECHNICIAN * Telephone Encounter - Lottie Main RN - 07/09/2025 8:59 AM EDUCATION TECHNICIAN Routing request to order x-ray to Maryellen Feng PA and clinical team for review and intervention. Le Barbosa is awaiting a call from the office, can be reached at [phone]. Reason for Conversation Knee Pain Background Patient had a fall on Wednesday, has right knee extreme pain, swelling and bruising. Patient statesshe can bear weight and ambulate but has extreme pain when doing so. Patient denies any broken skin. Patient Directed to urgent care due to lack of office appointments. Patient declined and is requesting an order for an x-ray Disposition See Today in Office, See More Appropriate Protocol Patient declined urgent care. Call back if symptoms persist or worsen. Reason for Disposition Followed a knee injury SEVERE pain (e.g., excruciating) No Initial Assessment on file. No Additional Information on file. Protocols Used Knee [id number]-[id number] Knee Eklq-Otbaz-HH ATION TECHNICIAN * Telephone Encounter - Lottie Main RN - 07/09/2025 8:50 AM EDUCATION TECHNICIAN Regarding: fall (1st evaluation), pain below right knee ----- Message from Haydee Lowery sent at 07/09/2025 8:40 AM EDUCATION TECHNICIAN ----- Symptom Based Call Chief Complaint(s): fall (1st evaluation), pain below right knee Duration: Wednesday What type of symptom(s) is the patient experiencing? Red Flag. Is the patient concerned they are experiencing a medical emergency requiring an ambulance? No Additional Comments: She would like to know if she can get an order for an xray Does message need to be routed? Yes-Action Needed ATION TECHNICIAN documented in this encounter Plan of Treatment Not on file documented as of this encounter Visit Diagnoses Not on filedocumented in this encounter Care Teams Wash Driller Relationship Specialty Start [place] [address] [place] [address] [address] [place] [address] PCP - General Internal Medicine 02/27/19 [place] [address] Consulting Physician Otolaryngology 11/06/22 documented as of this encounter
--- OUTSIDE RECORDS SUMMARY | 2025-07-09 11:21 | XMS_ITS | Clinical Summary ---
Author Organization [facility] Address [address] [place] [address] Care Team Providers Care Farmworker Chicken Farm Name Role Phone Unavailable Primary Care Provider Unavailabl e Source Comments [facility],non-owned Affiliates and Associated Physician Practices is amultiple site organization consisting of ambulatory clinics and hospital sitesin [place], [place], [place] and [place]. This disclosure is being madepursuant to the Care Everywhere program and may not contain all information available regarding this patient. Last updated 18.[facility] Allergies Active Allergy Reactions Criticality Noted Date Comments Contrast-Iodinated Agents Fo r Ct/Other Swelling 11/20/2017 Facial swelling Erythromycin Swelling 06/12/2017 Medications * Be aware that medications may not be up to date on this document. Alwaysverify current medications with the patient. methylPREDNISolo ne (MEDROL DOSEPAK) 4 MG tabletIndication s:Acute pharyngitis, unspecified etiology,Cough Take by mouth as directed 1 Each 7 Active fluticasone propionate (FLONASE) 50 MCG/ACT nasal sprayIndications :Acute pharyngitis, unspecified etiology,Cough Webster 2 sprays into each nostril once daily 1 bottles 7 Active ALBUTEROL IN Active benzonatate (TESSALON) 200 MG capsule Take 1 capsule by mouth 3 times daily as needed for Cough 30 capsule 8 Active Family History Medical History Relation Name Comments COPD - Chronic Obstructive Pulmonary Disease Father Cancer - Colon Father Diabetes - Type 2 Mother Cancer - Skin, Non Melanoma Paternal Grandfather Relation Name Status Comments Father Mother Alive Paternal Grandfather Social History Tobacco Use Types Packs/Day Years Used Date Smoking Tobacco: Every Day Cigarettes 1.5 30 Smokeless Tobacco: Never Comments Unknown Sex and Gender Information Value Date Recorded Sex Assigned at Not on file Legal Sex Female 7:07 PM CDT Gender Identity Not on file Sexual Orientation Not on file Last Filed Vital Signs Vital Sign Reading Time Taken Comments Blood Pressure 118/74 11/20/2017 2:13 PM CDT Pulse 96 11/20/2017 2:13 PM CDT Temperature 36.9 C (98.4 F) 11/20/2017 2:13 PM CDT Respiratory Rate 16 11/20/2017 2:13 PM CDT Oxygen Saturation 98% 11/20/2017 2:13 PM CDT Inhaled Oxygen Concentration - - Weight 106.6 kg (235 lb) 11/20/2017 2:13 PM CDT Height 167.6 cm (5' 6) 11/20/2017 2:13 PM CDT Body Mass Index [...] SCREENING 1977 LIPID TESTING 1977 MAMMOGRAM 1977 HIV SCREENING 1992 HEPATITIS C SCREENING 04/27/1995 DTAP/TDAP/TD VACCINES (1 - Tdap) 1996 HEPATITIS B VACCINE (1 of 3 - 19+ 3-dose series) 1996 PAP SMEAR 1998 Cervical Cancer Screening 2007 PAP with HPV 2007 SCREENING FOR DIABETES 06/12/2017 DEPRESSION SCREENING 08/09/2024 COVID-19 VACCINE (1 - 2024-2 6 season) 2025 INFLUENZA VACCINE (#1) 2025 ZOSTER VACCINE (1 of 2) 2027 HIB VACCINE Aged Out No longer eligi ble based on patient's age to complete this topic HPV VACCINE Aged Out No longer eligi ble based on patient's age to complete this topic MENINGOCOCCAL (Group B) VACC INE SHARED DECISION-MAKING Aged Out No longer eligibl e based on patient's age to complete this topic MENINGOCOCCAL GROUPS A/C/Y/W VACCINE Aged Out No longer eligible b ased on patient's age to complete this topic PNEUMOCOCCAL VACCINE Aged Out No long er eligible based on patient's age to complete this topic Insurance [facility]
--- OUTSIDE RECORDS SUMMARY | 2025-07-09 11:21 | XMS_ITS | Clinical Summary ---
Author Organization [facility] Address [address] [place] [address] Care Team Providers Care Retirement Plan Counselor Name Role Phone Unavailable Primary Care Provider Unavailabl e Social History Tobacco Use Types Packs/Day Years Used Date Smoking Tobacco: Never Assessed Comments Unknown Sex and Gender Information Value Date Recorded Sex Assigned at Not on file Legal Sex Female 10:15 AM CAR SCRUBBER Gender Identity Not on file Sexual Orientation Not on file Plan of Treatment Health Maintenance Due Date Last Done Comments HEPATITIS B VACCINES (1 of 3 - 19+ 3-dose series) 1996 HPV/Cotest (21-29) 1998 CERVICAL CANCER SCREENING 2007 HPV/Cotest (30-65) 2007 PAP SMEAR 2007 COLORECTAL SCREENING 2022 Colorectal Cancer Screening 2022 FIT-DNA Q 3 years 2022 FIT/FOBT Q 1 year 2022 Flex Sig/CT Colonography Q 5 years 2022 BREAST CANCER SCREENING 07/16/2023 07/16/2022, 10/17 INFLUENZA VACCINE (#1) 2025 05/11/2019, 2012 DTAP/TDAP/TD VACCINES (2 - Td or Tdap) 11/20/2025 Procedures Procedure Name Priority Date/Time Associated Diagnosis Comments MAMMO 3D MARGOT SCREEN BILAT W OR WO CAD Routine 07/16/2022 1:55 PM CAR SCRUBBER Breast cancer screening by mammogram from Last 3 Months or Most Recently Relevant to Health Maintenance Results * MAMMO SCRN BILAT 3D MARGOT W OR WO CAD (07/16/2022 1:55 PM CAR SCRUBBER) Anatomical Region Laterality Modality Breast Bilateral Mammography 07/16/2022 1:55 PM CAR SCRUBBER Impressions 07/16/2022 2:57 PM CAR SCRUBBER IMPRESSION: 1. No concerning findings. OVERALL FINAL ASSESSMENT: BI-RADS CATEGORY 1 - Negative. RECOMMENDATIONS: 1. Recommend annual mammography. Narrative 07/16/2022 2:57 PM CAR SCRUBBER BILATERAL SCREENING DIGITAL MAMMOGRAM WITH 3D TOMOSYNTHESIS AND CAD DATE: 07/16/2022 1:55 PM DICTATION LOCATION: [facility] HISTORY: Routine yearly screening exam. TECHNIQUE: Low-dose [...] DATE: 07/16/2022 1:55 PM DICTATION LOCATION: [facility] HISTORY: Routine yearly screening exam. TECHNIQUE: Low-dose [...] Recently Relevant to Health Maintenance Insurance [employer] OPEN CHOICE PPO
--- OUTSIDE RECORDS SUMMARY | 2025-07-09 11:21 | XMS_ITS | Clinical Summary ---
Author Organization [facility] Address [address] [place] [address] Phone Care Team Providers Care Hoop Maker Helper Machine Name Role Phone Ousmane Bee MD Primary Care Provider [phone] Anil Maxwell MD Unavailable [phone] Allergies Active Allergy Reactions Criticality Noted Date [...] Date Smoking Tobacco: Every Day Cigarettes 1.5 37.4 Started: 02/05/1988 Smokeless Tobacco: Never Alcohol Use [...] Comments Blood Pressure 128/86 06/17/2017 10:14 AM WELFARE INTERVIEWER Pulse 89 06/17/2017 10:14 AM WELFARE INTERVIEWER Temperature 36.5 C (97.7 F) 06/17/2017 10:14 AM WELFARE INTERVIEWER Respiratory Rate 18 06/17/2017 10:1 4 AM WELFARE INTERVIEWER Oxygen Saturation 99% 06/17/2017 10: 14 AM WELFARE INTERVIEWER Inhaled Oxygen Concentration - - Weight 103.6 kg (228 lb 6.4 oz) 017 10:14 AM WELFARE INTERVIEWER Height 167.6 cm (5' 6) 06/17/2017 10:1 4 AM WELFARE INTERVIEWER Body Mass Index 36.86 06/17/2017 10:14 AM WELFARE INTERVIEWER Plan of Treatment Health Maintenance Due Date Last Done Comments Hepatitis C Virus (HCV) Screening 1977 TdaP Immunization 1977 Hepatitis B Immunization (1 of 3 - 19+ 3-dose series) 1996 Pap Smear 1998 Cervical Cancer Screening (CCS) 2007 HPV/Cotest 2007 Cologuard 2022 Colonoscopy 2022 Colorectal Cancer Screening 2022 Immunochemical Fecal Occult Blood 2022 Influenza Immunization (#1) 2025 SARS-COV-2 Immunization ( season) 2025 Respiratory Syncytial Virus (RSV) Immunization (Adult) (1 - 1-dose 75+ series) 2052 Human Papillomavirus (HPV) Immunization Aged Out No longer eligible b ased on patient's age to complete this topic Meningococcal Immunization (ACWY) Aged Out No longer eligible based on patient's age to complete this topic Pneumococcal Immunization Combined Aged Out No longer eligible based on patient's age to complete this topic Rotavirus Immunization Aged Out No lo nger eligible based on patient's age to complete this topic Insurance [facility] [place] [place] Care Teams Hoop Maker Helper Machine Relationship Specialty [place] [address] [place] [address] PCP - General General Surgery 01/25/17 [place] [address] [place] [address] Otolaryngology 04/08/17
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
== END 2025-07-09 10:06 | disposition home or self-care (01) ==
PROVIDERS: PCP Physician Assistant; Visit Provider Physician Assistant
DX: M25.561 Pain in right knee (principal)
CPT/HCPCS: 73562